=== PATIENT | female | born 1970 | race Caucasian/White ===

== ENCOUNTER 2016-04-16 10:36 | Outpatient (RCR) | payer MEDICAID, OTHER ==
[~2016-04-16 10:36] MED LIST: AZIT250T81 PO; BP MED; INSASP10V SQ; INSU100I16 SQ; LISI-556 PO; LOVA20TA2 PO; MECL-124 PO; MTF500T PO; PNT40TEC PO; PRED20TA PO; TRAM-21 PO
== END 2016-07-15 | disposition home or self-care (01) ==
LOC: CARD 10:36
PROVIDERS: ATTEND Internal Medicine Cardiovascular Disease
DX: R07.9 Chest pain, unspecified (principal); R00.2 Palpitations
CPT/HCPCS: 93225; 93226

== ENCOUNTER → 2016-04-18 | Outpatient (CLI) | payer OTHER | LOC: CARD 10:20 | PROVIDERS: ATTEND Internal Medicine Cardiovascular Disease | DX: R07.9 Chest pain, unspecified (principal); R00.2 Palpitations | CPT/HCPCS: 93017 ==

== ENCOUNTER → 2018-02-05 | Outpatient (CLI) | payer OTHER ==
--- NOTE | 2018-02-05 12:09 | Diagnostic Imaging Report ---
INDICATION: Routine screening. COMPARISON: Comparison is made with prior mammogram from 08/10/2015. TECHNIQUE: 2D and 3D bilateral screening mammography was performed with computer-aided detection (CAD) system. FINDINGS: Both breasts are heterogeneously dense, limiting the sensitivity of mammography. Benign calcifications are noted bilaterally. No mass or malignant appearing microcalcifications are seen. The axillae are unremarkable. IMPRESSION: No mammographic features suspicious for malignancy are identified. ACR BI-RADS Category 2: Benign findings. Result letter will be mailed to the patient. Note: At least 10% of breast cancer is not imaged by mammography. Dictated by: Dictated on workstation # [id number]
== END ==
LOC: RAD 09:49
PROVIDERS: ATTEND Nurse Practitioner Primary Care
DX: Z12.31 Encounter for screening mammogram for malignant neoplasm of breast (principal)
CPT/HCPCS: 77067

== ENCOUNTER 2019-04-06 06:15 | Emergency (ER) | payer OTHER ==
[2019-04-06] VITALS (7 sets, daily range): BP systolic 97–113; BP diastolic 51–75
[~2019-04-06] VITALS: Ht 162 cm; Wt 61.9 kg
[2019-04-06 06:51] LABS: BASOPHILS # (AUTO) 0.1 10^3/uL (0.0-0.1); BASOPHILS % (AUTO) 0 % (0-10); EOSINOPHILS # (AUTO) 0.1 10^3/uL (0.0-0.3); EOSINOPHILS % (AUTO) 1 % (0-10); HEMATOCRIT 50 % (35-52); HEMOGLOBIN 17.4 G/DL (11.5-16.0); LYMPHOCYTES # (AUTO) 1.9 X 10^3 (1.0-4.0); LYMPHOCYTES % (AUTO) 12 % (12-44); LYMPHOCYTES % (MANUAL) 6 %; MEAN CORPUSCULAR HEMOGLOBIN 30 PG (25-34); MEAN CORPUSCULAR HGB CONC 35 G/DL (32-36); MEAN CORPUSCULAR VOLUME 86 FL (80-99); MEAN PLATELET VOLUME 10.1 FL (7.4-10.4); MONOCYTES # (AUTO) 0.5 X 10^3 (0.0-1.0); MONOCYTES % (AUTO) 3 % (0-12); MONOCYTES % (MANUAL) 3 %; NEUTROPHILS # (AUTO) 14.1 X 10^3 (1.8-7.8); NEUTROPHILS % (AUTO) 84 % (42-75); NEUTROPHILS % (MANUAL) 91 %; PLATELET COUNT 305 10^3/uL (130-400); RED CELL DISTRIBUTION WIDTH 12.5 % (10.0-14.5); WHITE BLOOD COUNT 16.8 10^3/uL (4.3-11.0)
[2019-04-06 06:52] LABS: CARBON DIOXIDE 19 MMOL/L (21-32); CHLORIDE 97 MMOL/L (98-107); MICROCYTOSIS MODERATE; POTASSIUM 4.2 MMOL/L (3.6-5.0); SODIUM 133 MMOL/L (135-145)
--- NOTE | 2019-04-06 06:52 | ED Abdominal Pain ---
General Chief Complaint: Abdominal/GI Problems Stated Complaint: NAUSEA/VOMITTING/DIARRHEA Nursing Triage Note: PT COMPLAINING OF VOMITING AND DIARRHEA SINCE LATE LAST NIGHT Sepsis Screen: No Definite Risk History of Present Illness Date Seen by Provider: Apr 06, 2019 Time Seen by Provider: 06:35 Initial Comments Patient is here with abdominal pain that started last night with nausea and vomiting small amount of blood streaking in the vomitus none and the diarrhea has been chilled does not know whether she has a fever or not fairly normal day yesterday with normal diet and intake quite a bit of watery diarrhea today quite a bit of abdominal cramping and pain Timing/Duration: 4-6 Hours Severity/Quality: Moderate, Burning, Cramping Location: Generalized Abdomen Radiation: No Radiation Modifying Factors: Worsens With Eating, Worsens With Vomiting Associated Symptoms: No Back Pain; Fever/Chills, Nausea/Vomiting Allergies and Home Medications Allergies Coded Allergies: morphine (Unverified Allergy, Severe, N/V, 01/07/14) Penicillins (Unverified Allergy, Unknown, 01/07/14) aspirin (Unverified Adverse Reaction, Unknown, 03/22/14) Home Medications Insulin Aspart 10 Unit/0.1 Ml Susp, 10 UNIT SQ TID, (Reported) Insulin Detemir 100 Unit/1 Ml Insuln.pen, 45 UNIT SQ HS, (Reported) Lisinopril 5 Mg Tablet, 5 MG PO DAILY, (Reported) Lovastatin 20 Mg Tablet, 20 MG PO DAILY WITH SUPPER, (Reported) Prednisone 20 Mg Tablet, 20 MG PO BID Prescribed by: FIDELIA BELCHER on 05/24/14 8004 Patient Home Medication List Home Medication List Reviewed: Yes Review of Systems Review of Systems Constitutional: chills, dizziness, fever, malaise, weakness EENTM: No Ear Pain, No Nose Congestion, No Throat Pain Respiratory: Denies Cough, Denies Shortness of Air Cardiovascular: Denies Chest Pain, Denies Irregular Heart Rate Gastrointestinal: Abdominal Pain, Diarrhea, Nausea, Vomiting Genitourinary: Denies Burning, Denies Hematuria Musculoskeletal: No joint pain, No joint swelling, No muscle stiffness Skin: No lesions, No rash Psychiatric/Neurological: Denies Anxiety, Denies Headache, Denies Numbness Past Jjyhbir-Sqlxkf-Mxqwun Hx Past Med/Social Hx: Reviewed Nursing Past Med/Soc Hx Patient Social History Alcohol Use: Denies Use Recreational Drug Use: No Smoking Status: Current Everyday Smoker Type Used: Cigarettes 2nd Hand Smoke Exposure: No Recent Foreign Travel: No Contact w/Someone Who Travel: No Recent Infectious Disease Expo: No Physical Abuse: No Sexual Abuse: No Mistreated: No Seasonal Allergies Seasonal Allergies: No Past Medical History Surgeries: Yes Gallbladder, Hysterectomy, Tubal Ligation Respiratory: Yes COPD Cardiac: Yes High Cholesterol, Hypertension 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 oz. 63.153755se; 23.00 BMI Method:Stated General Appearance: WD/WN, moderate distress HEENT: PERRL/EOMI, TMs normal, pharynx normal Neck: non-tender, full range of motion Respiratory: lungs clear, normal breath sounds Cardiovascular: no murmur, tachycardia Gastrointestinal: abnormal bowel sounds (hyperactive); No distended, No guarding, No rebound; tenderness (mild) Extremities: normal inspection, no pedal edema Back: normal inspection, no CVA tenderness Neurologic/Psychiatric: no motor/sensory deficits, normal mood/affect, oriented x 3 Skin: normal color, warm/dry Progress/Results/Core Measures Results/Orders Lab Results Laboratory Tests Test 04/06/19 06:25 Range/Units White Blood Count 16.8 H 4.3-11.0 10^3/uL Red Blood Count 5.80 4.35-5.85 10^6/uL Hemoglobin 17.4 H 11.5-16.0 G/DL Hematocrit 50 35-52 % Mean Corpuscular Volume 86 80-99 FL Mean Corpuscular Hemoglobin 30 25-34 PG Mean Corpuscular Hemoglobin Concent 35 32-36 G/DL Red Cell Distribution Width 12.5 10.0-14.5 % Platelet Count 305 130-400 10^3/uL Mean Platelet Volume 10.1 7.4-10.4 FL Neutrophils (%) (Auto) 84 H 42-75 % Lymphocytes (%) (Auto) 12 12-44 % Monocytes (%) (Auto) 3 0-12 % Eosinophils (%) (Auto) 1 0-10 % Basophils (%) (Auto) 0 0-10 % Neutrophils # (Auto) 14.1 H 1.8-7.8 X 10^3 Lymphocytes # (Auto) 1.9 1.0-4.0 X 10^3 Monocytes # (Auto) 0.5 0.0-1.0 X 10^3 Eosinophils # (Auto) 0.1 0.0-0.3 10^3/uL Basophils # (Auto) 0.1 0.0-0.1 10^3/uL Neutrophils % (Manual) 91 % Lymphocytes % (Manual) 6 % Monocytes % (Manual) 3 % Microcytosis MODERATE Prothrombin Time 13.1 12.2-14.7 SEC INR Comment 1.0 0.8-1.4 Activated Partial Thromboplast Time 27 24-35 SEC Sodium Level 133 L 135-145 MMOL/L Potassium Level 4.2 3.6-5.0 MMOL/L Chloride Level 97 L 98-107 MMOL/L Carbon Dioxide Level 19 L 21-32 MMOL/L Anion Gap 17 H 5-14 MMOL/L Blood Urea Nitrogen 14 7-18 MG/DL Creatinine 0.59 L 0.60-1.30 MG/DL Estimat Glomerular Filtration Rate > 60 BUN/Creatinine Ratio 24 Glucose Level 342 H 70-105 MG/DL Calcium Level 9.0 8.5-10.1 MG/DL Corrected Calcium 8.8 8.5-10.1 MG/DL Total Bilirubin 0.6 0.1-1.0 MG/DL Aspartate Amino Transf (AST/SGOT) 16 5-34 U/L Alanine Aminotransferase (ALT/SGPT) 22 0-55 U/L Alkaline Phosphatase 82 40-136 U/L Total Protein 7.3 6.4-8.2 GM/DL Albumin 4.3 3.2-4.5 GM/DL Lipase 17 8-78 U/L My Orders Orders - RITIKA SPRAGUE JR, MD Cbc And Manual Diff (04/06/19 06:46) Comprehensive Metabolic Panel (04/06/19 06:46) Ua Culture If Indicated (04/06/19 06:46) Lipase (04/06/19 06:46) Ns Iv 1000 Ml (Sodium Chloride 0.9%) (04/06/19 07:00) Ondansetron Injection (Zofran Injectio (04/06/19 07:00) Partial Thromboplastin Time (04/06/19 06:59) Protime With Inr (04/06/19 06:59) Ct Abd/Pelv W (Appendicitis) (04/06/19 06:59) Iohexol Injection (Omnipaque 350 Mg/Ml 1 (04/06/19 07:15) Sodium Chloride Flush (Catheter Flush Sy (04/06/19 07:15) Ns (Ivpb) (Sodium Chloride 0.9% Ivpb Bag (04/06/19 07:15) Received Contrast (Hold Metformin- Contr (04/06/19 07:15) Ns Iv 1000 Ml (Sodium Chloride 0.9%) (04/06/19 07:45) Medications Given in ED Current Medications Medications Dose Ordered Sig/Vlad Route Start Time Stop Time Status Last Admin Dose Admin Iohexol 100 ml ONCE ONCE IV 04/06/19 07:15 04/06/19 07:16 DC 04/06/19 07:16 100 ML Ondansetron HCl 4 mg ONCE ONCE IVP 04/06/19 07:00 04/06/19 07:01 DC 04/06/19 06:52 4 MG Sodium Chloride 10 ml NEEDED PRN IV 04/06/19 07:15 04/06/19 07:17 10 ML Sodium Chloride 100 ml ONCE ONCE IV 04/06/19 07:15 04/06/19 07:16 DC 04/06/19 07:16 80 ML Vital Signs/I&O 04/06/19 06:20 Temp 37.5 Pulse 110 Resp 18 B/P (MAP) 122/76 (91) Pulse Ox 96 O2 Delivery Room Air Blood Pressure Mean: 91 Progress Progress Note : Time: 08:10 Progress Note After 2 L of saline and some Zofran patient's injury doing better CT scan seemed to indicate an enterocolitis gastroenteritis blood counts are good will go ahead and send her home on Zofran make sure she takes her meds for diabetes increase her fluid and see how goes over the next 24 hours she understands this will return if any problems will see her PCP this week Departure Impression Primary Impression: Dehydration Additional Impression: Gastroenteritis Disposition: 01 HOME, SELF-CARE Condition: Stable Departure-Patient Inst. Referrals: GIANNA SPRAGUE DO (PCP) Primary Care Physician THOMPSON MIDDLETON APRN (Family) Primary Care Physician Patient Instructions: Dehydration, Adult (DC), Viral Gastroenteritis, Adult (DC) Scripts Ondansetron HCl (Zofran) 4 Mg Tab 4 MG PO Q8H PRN for NAUSEA/VOMITING, #7 TAB Prov: RITIKA SPRAGUE JR, MD 04/06/19 RITIKA SPRAGUE JR, MD Apr 06, 2019 06:52
[2019-04-06 06:53] LABS: ALANINE AMINOTRANSFERASE 22 U/L (0-55); ALBUMIN 4.3 GM/DL (3.2-4.5); ALKALINE PHOSPHATASE 82 U/L (40-136); BILIRUBIN,TOTAL 0.6 MG/DL (0.1-1.0); BUN/CREATININE RATIO 24; CREATININE SERUM 0.59 MG/DL (0.60-1.30); GFR ESTIMATED > 60; GLUCOSE 342 MG/DL (70-105); LIPASE 17 U/L (8-78); TOTAL PROTEIN 7.3 GM/DL (6.4-8.2)
[2019-04-06] MEDS ORDERED: NS IV 1000 ML 1,000 ML IV SCH ×2 (07:00→07:45)
[2019-04-06] MEDS ORDERED: ONDANSETRON 4 MG/2 ML (SDV) Z0FRAN IVP ONE (07:00)
--- NOTE | 2019-04-06 07:00 | NUR ---
Report from Norma PALMA. Pt needs a UA. IV fluid bolus infusing. Pt wanting a blanket and so does dgt. Daughter has been laying on floor in room and asking how much longer? Explained work up in progress; 1-1/2 hrs common for basic work up. Pt asking for ice but states also they will not stay down if she tried. Denied anything by mouth presently.
[2019-04-06 07:02] LABS: PROTHROMBIN TIME PATIENT 13.1 SEC (12.2-14.7)
[2019-04-06] MEDS ORDERED: IOHEXOL 350 MG/ML 100 ML (OMNIPAQUE 350) VIAL IV ONE (07:15)
[2019-04-06] MEDS ORDERED: HOLD METFORMIN - RECEIVED CONTRAST 20 ML VIAL IV SCH (07:15)
[2019-04-06] MEDS ORDERED: NS 100 ML (IVPB) BAG IV ONE (07:15)
[2019-04-06] MEDS ORDERED: CATHETER FLUSH 10 ML SYR IV PRN (07:15)
--- NOTE | 2019-04-06 07:20 | NUR ---
Returned from CT, patient asked how much longer? CT staff reported till results to physician 30-45 min and determination decided. Dgt is laying on ER floor in room.
--- NOTE | 2019-04-06 07:36 | Diagnostic Imaging Report ---
PROCEDURE: CT abdomen and pelvis with contrast, rule out appendicitis. TECHNIQUE: Multiple contiguous axial images were obtained through the abdomen and pelvis after the administration of intravenous contrast. All CT scans use one or more of the following dose optimizing techniques: automated exposure control, MA and/or KvP adjustment based on a patient size and exam type, or iterative reconstruction. INDICATION: Lower abdominal pain. COMPARISON: None. FINDINGS: Included portions of the lung bases show scattered groundglass densities, bilaterally. CT ABDOMEN: Multiple air-fluid levels are noted scattered throughout the large and small bowel. There is a single loop of asymmetric small bowel prominence within the left hemiabdomen presumably involving the jejunum. It measures 2.8 cm in diameter. Otherwise, small bowel loops are nondistended. Normal appendix is identified. The kidneys, adrenal glands, spleen, pancreas, and liver have a normal CT appearance. There is no loculated fluid collection, free fluid, nor free air within the abdomen. No abnormal mesenteric or retroperitoneal adenopathy is seen. Osseous structures show no acute abnormalities. Mild to moderate scattered calcified aortic and arterial atherosclerosis is noted. CT PELVIS: Urinary bladder is unopacified. No calculi are seen within the urinary bladder. There is no loculated fluid collection, free fluid, nor free air within the pelvis. No abnormal pelvic adenopathy is identified. Osseous structures show no acute abnormalities. IMPRESSION: 1. Multiple air-fluid levels seen scattered throughout the large and small bowel with single mildly prominent asymmetric loop of small bowel. Findings are nonspecific, but raise suspicion for nonspecific infectious or inflammatory enterocolitis. Clinical correlation is advised. 2. No CT evidence of acute appendicitis. 3. Mild to moderate scattered calcified aortic and arterial atherosclerosis. This is greater than expected given patient's age. Correlation with underlying risk factors is recommended. Dictated by: Dictated on workstation # [id number]
[2019-04-06] MEDS ORDERED: ONDN4T PO (08:13)
--- NOTE | 2019-04-06 08:25 | NUR ---
At the time of discharge pt is needing to void and specimen collected as pt was departing. Will call if urine result requires further medication. Pt verbalizes understanding of home instructions reviewed.
[2019-04-06 08:37] LABS: BILIRUBIN,URINE NEGATIVE (NEGATIVE); CLARITY,URINE CLEAR; COLOR,URINE YELLOW; GLUCOSE, URINE (UA) 2+ (NEGATIVE); KETONES,URINE NEGATIVE (NEGATIVE); NITRITE,URINE NEGATIVE (NEGATIVE); PROTEIN,URINE NEGATIVE (NEGATIVE)
[2019-04-06 08:38] LABS: LEUKOCYTE ESTERASE ,URINE NEGATIVE (NEGATIVE)
== END 2019-04-06 08:25 | disposition home or self-care (01) ==
LOC: EDUNIT# 06:15 → ER FS 06:18
DX: K52.9 Noninfective gastroenteritis and colitis, unspecified (principal); E86.0 Dehydration; J44.9 Chronic obstructive pulmonary disease, unspecified; I10 Essential (primary) hypertension; E11.9 Type 2 diabetes mellitus without complications; E78.00 Pure hypercholesterolemia, unspecified; K21.9 Gastro-esophageal reflux disease without esophagitis; F17.210 Nicotine dependence, cigarettes, uncomplicated; Z90.710 Acquired absence of both cervix and uterus; Z98.51 Tubal ligation status; Z88.5 Allergy status to narcotic agent; Z88.0 Allergy status to penicillin; Z88.6 Allergy status to analgesic agent; Z79.4 Long term (current) use of insulin; Z79.52 Long term (current) use of systemic steroids
CPT/HCPCS: 36415; 74177; 80053; 81000; 83690; 85007; 85027; 85610; 85730; 96374

== ENCOUNTER 2020-07-17 11:36 | Emergency (ER) | payer SELFPAY ==
[~2020-07-17 11:36] MED LIST changes: +ONDN4T PO
[2020-07-17 11:42] VITALS: BP 137/70
[2020-07-17] MEDS ORDERED: HYDROcodone/APAP 5 MG/325 MG (LORTAB) TAB PO ONE (11:45)
--- NOTE | 2020-07-17 12:14 | Diagnostic Imaging Report ---
EXAMINATION: Right ankle 3 views HISTORY: Trauma COMPARISON: Right foot radiograph 07/17/2020 FINDINGS: There is no acute fracture, dislocation, or destructive osseous process. Joint spaces are normal. The soft tissues are normal. IMPRESSION: No acute osseous abnormality of the right ankle. Dictated by: Dictated on workstation # [id number]
--- NOTE | 2020-07-17 12:15 | Diagnostic Imaging Report ---
EXAM: Right foot radiograph EXAM DATE: 07/17/2020 COMPARISON: Right ankle radiograph 07/17/2020 HISTORY: Injury to the right foot with pain. TECHNIQUE: 3 views of the right foot. FINDINGS: There is no acute fracture, dislocation, or destructive osseous process. There are mild degenerative changes in the midfoot. Joint spaces are normal. Soft tissues are normal. IMPRESSION: No acute osseous abnormality of the right foot. Dictated by: Dictated on workstation # [id number]
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
[2020-07-17] MEDS ORDERED: TRAM50TA3 PO (12:17)
== END 2020-07-17 12:38 | disposition home or self-care (01) ==
LOC: EDUNIT# 11:36 → ER FS 11:37
DX: S93.401A Sprain of unspecified ligament of right ankle, initial encounter (principal); I10 Essential (primary) hypertension; E78.00 Pure hypercholesterolemia, unspecified; E11.9 Type 2 diabetes mellitus without complications; J44.9 Chronic obstructive pulmonary disease, unspecified; F17.210 Nicotine dependence, cigarettes, uncomplicated; Z79.4 Long term (current) use of insulin; Z79.52 Long term (current) use of systemic steroids; Z88.0 Allergy status to penicillin; Z88.1 Allergy status to other antibiotic agents; Z88.2 Allergy status to sulfonamides; Z88.5 Allergy status to narcotic agent; Z88.6 Allergy status to analgesic agent; X50.1XXA Overexertion from prolonged static or awkward postures, initial encounter; W10.1XXA Fall (on)(from) sidewalk curb, initial encounter; Y92.480 Sidewalk as the place of occurrence of the external cause
CPT/HCPCS: 73610; 73630; 99283; L4350

== ENCOUNTER 2020-08-03 13:54 | Emergency (ER) | payer OTHER ==
[~2020-08-03] VITALS: Ht 162.6 cm; Wt 63.5 kg
[2020-08-03 13:54] VITALS: BP 134/67
[~2020-08-03 13:54] MED LIST changes: +TRAM50TA3 PO
[2020-08-03] MEDS ORDERED: IBUP-1780 PO (14:03)
[2020-08-03] MEDS ORDERED: CYCL10TA9 PO (14:03)
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
== END 2020-08-03 14:10 | disposition home or self-care (01) ==
LOC: ER FS 13:54
DX: Z04.1 Encounter for examination and observation following transport accident (principal); J44.9 Chronic obstructive pulmonary disease, unspecified; I10 Essential (primary) hypertension; E11.9 Type 2 diabetes mellitus without complications; E78.00 Pure hypercholesterolemia, unspecified; Z88.5 Allergy status to narcotic agent; Z88.0 Allergy status to penicillin; Z88.2 Allergy status to sulfonamides; Z88.8 Allergy status to other drugs, medicaments and biological substances; Z79.4 Long term (current) use of insulin; Z79.52 Long term (current) use of systemic steroids; Z79.899 Other long term (current) drug therapy
CPT/HCPCS: 99283

== ENCOUNTER → 2022-03-22 | Outpatient (CLI) | payer BC ==
[~2022-03-22] MED LIST changes: +CYCL10TA25 PO; +IBUP-1780 PO
--- NOTE | 2022-03-22 10:41 | Diagnostic Imaging Report ---
INDICATION: Bilateral knee pain. FINDINGS: 6 views. Joint spaces are well-maintained. There is question of a subtle lucency along the articulating surface of the lateral femoral condyle on the right. Articulating surfaces are otherwise normal in appearance. Patellofemoral joints show good alignment without hypertrophic changes. No chondrocalcinosis or loose bodies. IMPRESSION: 1. Question of a subtle cortical defect along the right lateral femoral condyle. If patient symptoms correlate would consider a MRI of the knee. Dictated by: Dictated on workstation # [id number]
== END ==
LOC: RAD FS 10:06
PROVIDERS: ATTEND Nurse Practitioner Family
DX: M25.561 Pain in right knee (principal); M25.562 Pain in left knee; G89.29 Other chronic pain

== ENCOUNTER 2022-07-02 23:08 | Emergency (ER) | payer SELFPAY ==
[~2022-07-02] VITALS: Ht 165 cm; Wt 60.0 kg
[2022-07-02 23:20] VITALS: BP 118/65
[2022-07-02] MEDS ORDERED: ACETAMINOPHEN 500 MG TAB (TYLENOL) PO ONE (23:30)
[2022-07-02] MEDS ORDERED: IBUPROFEN 600 MG (MOTRIN) TAB PO ONE (23:30)
--- NOTE | 2022-07-02 23:37 | ED Lower Extremity ---
General Chief Complaint: Lower Extremity Stated Complaint: R KNEE SWELLING/CANNOT WALK Nursing Triage Note: Pt presents with c/o R medial knee pain that started earlier today. She reports increased difficulty walking, and increased pain with movement. Denies injury. Source: patient Exam Limitations: no limitations History of Present Illness Date Seen by Provider: Jul 02, 2022 Time Seen by Provider: 23:15 Initial Comments 51-year-old female coming in due to right medial knee pain. On for roughly 5 months, got better, and then worsened again earlier today. Denies any trauma to it or twisting it in any type of way. States it is painful to walk or bend it. She states she had an x-ray of her knee in March and was told she should get an MRI, but she could not afford it. Did not take any medicines for it as of ye t today. Is otherwise denying any other acute complaints. Allergies and Home Medications Allergies Coded Allergies: morphine (Unverified Allergy, Severe, N/V, 01/07/14) Penicillins (Unverified Allergy, Unknown, 01/07/14) sulfamethoxazole (Verified Allergy, Unknown, hives, shaking, 07/17/20) trimethoprim (Verified Allergy, Unknown, hives, shaking, 07/17/20) aspirin (Unverified Adverse Reaction, Unknown, 03/22/14) Patient Home Medication List Home Medication List Reviewed: Yes Azithromycin (Azithromycin) 250 Mg Tablet, 250 MG PO, (Reported) Entered as Reported by: KAREN LOUIS on 05/24/142050 Cyclobenzaprine HCl (Cyclobenzaprine HCl) 10 Mg Tablet, 10 MG PO Q8H PRN for SPASMS Prescribed by: MARY BAILEYSTBEBA on 08/03/20 1403 Ibuprofen (Ibuprofen) 800 Mg Tablet, 800 MG PO Q8H PRN for PAIN Prescribed by: MARY BAILEYSTINE on 08/03/20 1403 Insulin Aspart (Novolog Vial) 10 Unit/0.1 Ml Susp, 10 UNIT SQ TID, (Reported) Entered as Reported by: MINOO BALES on 01/07/14 1004 Insulin Detemir (Levemir) 100 Unit/1 Ml Insuln.pen, 45 UNIT SQ HS, (Reported) Entered as Reported by: MINOO BALES on 01/07/14 1004 Lisinopril (Lisinopril) 5 Mg Tablet, 5 MG PO DAILY, (Reported) Entered as Reported by: JESÚS MARVIN on 03/22/14 1822 Lovastatin (Lovastatin 20 Mg) 20 Mg Tablet, 20 MG PO DAILY WITH SUPPER, (Repo rted) Entered as Reported by: MINOO BALES on 01/07/14 1004 Ondansetron HCl (Zofran) 4 Mg Tab, 4 MG PO Q8H PRN for NAUSEA/VOMITING Prescribed by: RITIKA SPRAGUE on 04/06/19 0813 Prednisone (Prednisone) 20 Mg Tablet, 20 MG PO BID Prescribed by: FIDELIA BELCHER on 05/24/14 2134 Tramadol HCl (Tramadol HCl) 50 Mg Tablet, 50 MG PO Q6H Prescribed by: JOAQUÍN OSBORN on 07/17/20 1217 Review of Systems Constitutional: No fever EENTM: no symptoms reported Respiratory: no symptoms reported Cardiovascular: no symptoms reported Gastrointestinal: no symptoms reported Genitourinary: no symptoms reported Musculoskeletal: see HPI Skin: no symptoms reported Psychiatric/Neurological: No Symptoms Reported Past Tlsqxme-Ucigmu-Fsudle Hx Patient Social History Tobacco Use?: Yes Tobacco type used: Cigarettes Smoking Status: Current Everyday Smoker Use of E-Cig and/or Vaping dev: No Substance use?: No Alcohol Use?: No Pt feels they are or have been: No Immunizations Up To Date Influenza Vaccine Up-to-Date: No; Not Current Seasonal Allergies Seasonal Allergies: No Past Medical History Surgeries: Yes Gallbladder, Hysterectomy, Tubal Ligation Respiratory: Yes COPD Cardiac: Yes High Cholesterol, Hypertension Neurological: No [employer] History: Hysterectomy, Tubal Ligation Genitourinary: No Gastrointestinal: Yes Gastroesophageal Reflux, Ulcer Musculoskeletal: No Endocrine: Yes Diabetes, Insulin dep HEENT: No Cancer: No Psychosocial: No Integumentary: No Blood Disorders: No Physical Exam Vital Signs Vital Signs - First Documented 07/02/22 23:20 Temp 36.7 Pulse 95 Resp 16 B/P (MAP) 118/65 (82) Capillary Refill : Less Than 3 Seconds Height, Weight, BMI Height: 5'4" Weight: 140lbs. oz. 63.448106mo; 22.00 BMI Method:Stated General Appearance: WD/WN, no apparent distress HEENT: PERRL/EOMI, normal ENT inspection, pharynx normal Neck: non-tender, full range of motion, supple, normal inspection Cardiovascular: regular rate, rhythm, no edema, no murmur Respiratory: chest non-tender, lungs clear, normal breath sounds, no respiratory distress, no accessory muscle use Gastrointestinal: normal bowel sounds, non tender, soft; No distended, No guarding, No rebound Back: normal inspection, no CVA tenderness Hips: bilateral hip non-tender Legs: bilateral leg non-tender, bilateral leg normal inspection, bilateral leg normal range of motion, bilateral leg no evidence of injury Knees: left knee non-tender; bilateral knee normal inspection, bilateral knee normal range of motion, bilateral knee no evidence of injury; right knee bone tenderness (Right medial joint line), right knee soft tissue tenderness ( mostly along MCL), right knee other (Normal testing of MCL, LCL, ACL, PCL with normal endpoints) Ankles: bilateral ankle non-tender, bilateral ankle normal inspection, bilateral ankle normal range of motion, bilateral ankle no evidence of injury Neurologic/Tendon: normal sensation, normal motor functions, normal tendon functions Neurologic/Psychiatric: no motor/sensory deficits, alert, normal mood/affect Skin: normal color, warm/dry Progress/Results/Core Measures Results/Orders My Orders Orders - OLGA CARTER MD Knee 3 View Right (07/02/22 23:28) Ibuprofen Tablet (Motrin Tablet) (07/02/22 23:30) Acetaminophen Tablet (Tylenol Tablet) (07/02/22 23:30) Medications Given in ED Current Medications Medications Dose Ordered Sig/Vlad Route Start Time Stop Time Status Last Admin Dose Admin Acetaminophen 1,000 mg ONCE ONCE PO 07/02/22 23:30 07/02/22 23:31 DC 07/02/22 23:39 1,000 MG Ibuprofen 600 mg ONCE ONCE PO 07/02/22 23:30 07/02/22 23:31 DC 07/02/22 23:39 600 MG Vital Signs/I&O 07/02/22 23:20 Temp 36.7 Pulse 95 Resp 16 B/P (MAP) 118/65 (82) Blood Pressure Mean: 82 Progress Progress Note : Progress Note 51-year-old female with above history coming in due to right medial knee pain. ABCs were intact and vitals are stable on presentation. Physical exam with right medial knee tenderness. There is no effusion and ligamentous testing is unrevealing. No clinical signs of DVT or cellulitis/infection. I reviewed the x- ray from March showing a subtle lucency in the lateral femoral condyle which does not fit with her symptoms today. Repeat x-ray ordered and interpreted by me with the radiolucency in the lateral femoral condyle less apparent, no obvious fracture or dislocation. Repeat exam on the medial side could be consistent with Pez anserine bursitis. She was given ibuprofen and Tylenol for pain. We will give her an Chon bandage and offered crutches. I believe she is otherwise stable for discharge with outpatient follow-up with orthopedics. She was sent home with strict return precautions Departure Impression Primary Impression: Right medial knee pain Disposition: HOME, SELF-CARE Condition: Stable Departure-Patient Inst. Decision time for Depature: 23:50 Referrals: SAMAN GILLETTE APRN (PCP) Primary Care Physician [facility]/JONELLE (Family) Primary Care Physician ROD GLORIA Patient Instructions: Knee Pain (DC), Pes Anserine Bursitis (DC) Add. Discharge Instructions: Your prior x-ray showed what we call a "radiolucency" in the right lateral part of your thigh bone which is not where you hurt today. The same radiolucency is not as apparent on today's x-ray. Of course, it would be best to get an MRI to further evaluate when there is question of something that is difficult to see on x-ray. Please follow-up with Bolivar Gloria, the bone specialist here in [facility]. Take ibuprofen and/or Tylenol as needed for pain, and you can ice the area. Work/School Note: Family Work Note, Patient Received Medical Care In the Emergency Department On: Jul 02, 2022 Patient Will Be Able to Return to Work/School On: Jul 04, 2022 Work Release Form Date Seen in the Emergency Department: Jul 02, 2022 Return to Work: Jul 04, 2022 Restrictions: No Restrictions OLGA CARTER MD Jul 02, 2022 23:37
--- NOTE | 2022-07-03 07:01 | Diagnostic Imaging Report ---
INDICATION: Medial right knee pain COMPARISONS: 03/22/2022 FINDINGS: 3 views the right knee once again shows subtle cortical defect along the medial distal femoral condyle. This is however similar to the previous study of 03/23/2022. Otherwise there is no fracture or subluxation seen. There is no bony destruction or remodeling. There is no definite evidence of a joint effusion by plain radiographic criteria. IMPRESSION: Subtle cortical defect along the lateral femoral condyle similar to the previous study. No adverse interval change with no evidence of an acute fracture or subluxation or joint effusion seen. If symptoms warrant or persist an MRI would be of further value. Dictated by: Dictated on workstation # [id number]
== END 2022-07-02 23:58 | disposition home or self-care (01) ==
LOC: EDUNIT# 23:08 → ER FS 23:11
DX: M25.561 Pain in right knee (principal); F17.210 Nicotine dependence, cigarettes, uncomplicated; Z88.6 Allergy status to analgesic agent; Z28.310 Unvaccinated for COVID-19
CPT/HCPCS: 73562